=== PATIENT | female | born 1955 | race Caucasian/White ===

== ENCOUNTER → 2017-03-11 | Outpatient (CLI) | payer OTHER ==
[~2017-03-11] MED LIST: ANUSOL-HC SUPP25 M1 PR; CELEXA20 MG PO; DICLOFENAC; FIBERCON625 MG PO; FLEXERIL10 MG PO; IBUPROFEN PO; LEVAQUIN750 MG PO; LEXAPRO PO; OMEPRAZOLE40 MG PO; TRIAMCINOLONE A15 G2 EXT; ULTRAM PO; VESICARE PO; VOLTAREN50 MG PO; XYLOCAINE20 ML 2% V EXT
--- NOTE | ~2017-03-11 | MR104 ---
[facility] A Service of [facility] RADIOLOGY TEXT RESULTS PATIENT: ESTUARDO ABRAMS LOCATION: [facility] : 55 UNIT #: [id number] AGE: [address]: Lora Jackson MD SEX: F ORDER DR: [id number] [address] [address] [id number] O MR#: [id number] Acc #: [id number] NAME: ESTUARDO ABRAMS : 1955 SEX: F STUDY DATE/TIME: 03/11/2017 10:54 UNIT: [facility] ROOM: STUDY DESCRIPTION: MR Knee Wo Contrast Rt Attending Physician: Lora Jackson M.D. Referring Physician: Lora Jackson M.D. Ordering Physician: Lora Jackson M.D. Primary Care Physician: Lora Jackson M.D. MRI CENTER REPORT This report is preliminary unless electronic signature is present. EXAM Right knee MRI without contrast 03/11/2017 HISTORY 61-year-old female with right knee pain status post twisting injury September 2016. No prior right knee surgery. COMPARISON Right knee x-rays 10/14/2016 TECHNIQUE Routine unenhanced multiplanar, multisequence high field MR imaging of the right knee was performed. FINDINGS The menisci are intact. Cruciate ligaments are intact. There is a grade 2/3 sprain of the proximal medial collateral ligament at the femoral attachment. Lateral collateral ligament complex is unremarkable. Extensor mechanism is intact. No joint effusion. No popliteal cyst. There is low grade chondromalacia of the medial patellar facet and median ridge. Femoral trochlea articular cartilage is intact. Lateral compartment articular cartilage intact. Medial compartment articular cartilage is intact. Bone marrow signal is within expected limits. Visualized musculature is unremarkable. IMPRESSION 1. Grade 2/3 proximal MCL sprain at the femoral attachment. 2. No evidence of a meniscus tear. [facility] A Service of [facility] RADIOLOGY TEXT RESULTS PATIENT: ESTUARDO ABRAMS LOCATION: [facility] : 55 UNIT #: [id number] AGE: [address]: Lora Jackson MD SEX: F ORDER DR: 3. Cruciate ligaments are intact. 4. Low grade chondromalacia of the patella. Dictated by... Mo Pratt M.D. THIS IS AN ELECTRONICALLY VERIFIED REPORT Mo Pratt M.D. at 03/13/2017 8:29 AM KASANDRA/woodrow TD: 03/12/2017 15:03 JOB #: [id number] MRI CENTER REPORT Page 1 of 1
== END | disposition home or self-care (01) ==
LOC: SMRI 10:31
DX: M25.561 Pain in right knee (principal); S83.411A Sprain of medial collateral ligament of right knee, initial encounter; M22.41 Chondromalacia patellae, right knee
CPT/HCPCS: 73721

== ENCOUNTER → 2017-04-14 | Outpatient (CLI) | payer OTHER ==
--- NOTE | ~2017-04-14 | MY11 ---
[facility] A Service of [facility] RADIOLOGY TEXT RESULTS PATIENT: ESTUARDO ABRAMS A LOCATION: [facility] : 55 UNIT #: [id number] AGE: [address]: Lora Jackson MD SEX: F ORDER DR: [id number] [place] [id number] O MR#: [id number] Acc #: [id number] NAME: ESTUARDO ABRAMS : 1955 SEX: F STUDY DATE/TIME: 04/14/2017 8:50 UNIT: [facility] ROOM: STUDY DESCRIPTION: MY Mammogram Screening Dig [place] Attending Physician: Lora Jackson M.D. Referring Physician: Lora Jackson M.D. Ordering Physician: Lora Jackson M.D. Primary Care Physician: Lora Jackson M.D. MEDICAL IMAGING REPORT This report is preliminary unless electronic signature is present. EXAM Digital screening mammogram, 04/14/2017, [facility]. HISTORY 61-year-old woman. Positive family history, sister postmenopausal. Annual screen. COMPARISON Mammograms 12/06/2004, 05/28/2007, 05/13/2013. FINDINGS Digital imaging of each breast was completed utilizing screening protocol. Review includes FDA-approved CAD device. Breast parenchyma is predominantly fatty replaced bilaterally. Residual parenchymal density projects upper anterior third right breast. This dominance is stable. I see no suspicious mass characteristics. There are no interval occurring microcalcifications and no architectural deformity. IMPRESSION Stable benign mammogram. Annual screening recommended. Patients over the age of 40 are entered into a reminder system with target due date for the next mammogram. A result letter will also be sent to the patient. BIRADS: 2 Benign finding. Dictated by... Morales Burrell M.D. THIS IS AN ELECTRONICALLY VERIFIED REPORT Morales Burrell M.D. at 04/14/2017 1:39 PM RIKKI/mal [facility] A Service of [facility] RADIOLOGY TEXT RESULTS PATIENT: ESTUARDO ABRAMS LOCATION: [facility] : 55 UNIT #: [id number] AGE: [address]: Lora Jackson MD SEX: F ORDER DR: TD: 04/14/2017 13:10 JOB #: [id number] MEDICAL IMAGING REPORT Page 1 of 1
== END | disposition home or self-care (01) ==
LOC: SMAM 08:06
DX: Z12.31 Encounter for screening mammogram for malignant neoplasm of breast (principal); Z80.3 Family history of malignant neoplasm of breast
CPT/HCPCS: G0202